=== PATIENT | male | born 1950 | race Caucasian/White ===

== ENCOUNTER → 2020-05-01 09:57 | Outpatient (CLI) | payer MEDICARE, OTHER ==
--- NOTE | ~2020-05-01 | EC ---
PATIENT:KATTY FIGUEROA DATE OF SERVICE: 05/01/20 SEX: M MEDICAL RECORD: [id number] DATE OF : 46 [facility] AGE OF PATIENT: 69 ADMISSION DATE: 05/01/20 REFERRING PHYSICIAN: INTERPRETING PHYSICIAN: MARCIE CUNNINGHAM MD ECHOCARDIOGRAM REPORT ECHO CHARGES 4 ECHO COMPLETE Date: 05/01/20 CLINICAL DIAGNOSIS: HX OF HTN/CAD/CARDIOMYOPATHY ASSESS EF ECHOCARDIOGRAPHIC MEASUREMENTS (adult normal given) AC root (d.<3.7cm) 3.4 cm LV Septum d (<1.2 cm> 1.3 cm Valve Excursion 1.5 cm LV Septum (systole) 1.5 cm Left Atria (s.<4.0cm> 4.2 cm LVPW d(<1.2cm) 1.5 cm RV (d.<2.3cm) 1.6 cm LVPW (sytole) 1.6 cm LV diastole(<5.6CM) 5.6 cm MV E-F(>70mm/sec) cm LV systole 4.2 cm LVOT Diameter 1.9 cm MV exc.(>10mm) 2.5 cm Est.ejection fraction (50-75%) % DOPPLER: LVIT cm/sec A 83.0 cm/sec E 62.0 cm/sec LA cm/sec RVSP 20 mmHg LVOT 98 cm/sec AOP1/2T m/s Asc. Ao 160 cm/sec RVOT 78 cm/sec RA cm/sec PA 114 cm/sec AV Gradient Peak 10.21mmHg AV Mean 5.76 mmHg AV Area 1.7 cm MV Gradient Peak 3.30 mmHg MV Mean 1.06 mmHg MV Area cm COMMENTS: Visual Journalist: 2 ROMAINE NELSON Opinion Polls Survey Worker: 3 Dr. Boyce TAPE# PACS Pericardial Effusion N DATE OF SERVICE: Adequate 2D, color flow imaging, spectral Doppler and M-mode. Mild LVH. LV internal dimension is normal. Wall motion is normal. EF is greater than or equal to 55%. Aortic valve is tricuspid. No evidence of stenosis by Doppler interrogation. There is a mild AI with color flow imaging. Left atrium is minimally dilated at 4.2 cm. Mitral valve shows no prolapse. Trace MR. Right-sided chambers are grossly normal. Mild TR. ECHOCARDIOGRAM REPORT [id number] KATTY FIGUEROA TRANSINT:[id number] Voice Confirmation ID: [id number] DOCUMENT ID: [id number] MARCIE CUNNINGHAM MD CC: [id number] DICTATION DATE: 05/02/20 140 [employer] OPERATOR: 05/02/202232 DEP CLI 05/01/20 [place] [id number] [place] [id number]
== END | disposition home or self-care (01) ==
LOC: D.HCCECHO 09:57
PROVIDERS: ATTEND Internal Medicine Interventional Cardiology
DX: I10 Essential (primary) hypertension (principal)